=== PATIENT | female | born 1945 | race Hispanic/Latino ===

== ENCOUNTER 2018-07-20 16:36 | Inpatient (IN) | payer MEDICARE, OTHER ==
--- NOTE | 2018-07-20 17:16 | ED PDOC ---
HPI: SOB/CHF/COPD Time Seen by Provider: 07/20/18 16:52 Chief Complaint (Nursing): Shortness Of Breath Chief Complaint (Provider): Shortness of Breath History Per: Patient History/Exam Limitations: no limitations Onset/Duration Of Symptoms: Days (one) Current Symptoms Are (Timing): Still Present (Pt presents to the ED by way of EMS with a complaint of SOB and RIVERO; Pt has no cardiac history, has not smoked for 25 years but does have HTN, hypothyroid, RA; pt denies other symptoms including chest pain and lower extremitiy edema) Initiating Event: Upper Respiratory Illness Exacerbating Factor(s): Laying Flat Severity: Mild Associated Symptoms: denies: Sweating, Chest Pain - Risk Factors PE Risk Factors: Pos: CHF Past Medical History Reviewed: Historical Data, Nursing Documentation, Vital Signs Vital Signs: Last Vital Signs Temp 97.7 F 07/20/18 16:43 Pulse 103 H 07/20/18 16:43 Resp 20 07/20/18 16:43 BP Pulse Ox 90 L 07/20/18 16:43 - Medical History PMH: COPD, Hyperlipidemia, Hypothyroidism - Family History Family History: States: Unknown Family Hx - Home Medications Home Medications: Ambulatory Orders Medication Instructions Recorded Levothyroxine Sodium [Synthroid] 88 mcg PO DAILY 07/20/18 Lisinopril [Prinivil] 20 mg PO DAILY 07/20/18 Methotrexate Sodium [Trexall] 30 mg PO QWK 07/20/18 Naproxen [Naprosyn] 500 mg PO DAILY 07/20/18 - Allergies Allergies/Adverse Reactions: Allergies Allergy/AdvReac Type Severity Reaction Status Date / Time No Known Allergies Allergy Verified 07/20/18 16:43 Curb-65 Severity Score - CURB-65 Severity Score Confusion: No Bun >19mg/dl (>7mmol/L): Yes Respiratory Rate greater than/equal to 30: No Systolic BP <90 or Diastolic BP less than/equal 60mmHg: No Age >64: Yes Curb-65 Score: 2 Percentage 30-day mortality: 6.8% Review of Systems ROS Statement: Except As Marked, All Systems Reviewed And Found Negative Constitutional: Negative for: Fever, Sweats Cardiovascular: Positive for: Orthopnea. Negative for: Chest Pain, Palpitations Respiratory: Positive for: Cough, Shortness of Breath, SOB with Exertion, Wheezing Physical Exam - Reviewed Nursing Documentation Reviewed: Yes Vital Signs Reviewed: Yes - Physical Exam Appears: Positive for: Well, No Acute Distress. Negative for: Uncomfortable Head Exam: Positive for: ATRAUMATIC, NORMAL INSPECTION Skin: Positive for: Normal Color, Warm, Dry. Negative for: Diaphoresis, Pallor, Rash Eye Exam: Positive for: Normal appearance ENT: Positive for: Normal ENT Inspection. Negative for: Nasal Congestion, Pharyngeal Erythema, Tonsillar Exudate, Tonsillar Swelling Neck: Positive for: Normal, Painless ROM, Supple. Negative for: Decreased ROM Cardiovascular/Chest: Positive for: Tachycardia. Negative for: Gallop, Murmur Respiratory: Positive for: Rales (bilateral lower extrmities), Wheezing Pulses-Carotid (L): 2+ Pulses-Carotid (R): 2+ Pulses-Radial (L): 2+ Pulses-Radial (R): 2+ - Laboratory Results Result Diagrams: 07/20/18 17:55 07/20/18 17:55 - ECG O2 Sat by Pulse Oximetry: 90 Medical Decision Making Medical Decision Making: CXR - indicative of infiltrates R>>L and pulmonary edema CMP - elevated BUN (25) CBC - elevated WBC (20) Pt placed on zithromax 500mg and ceftriaxone 1g Admit to Dr Medeiros Consult to Dr Brooks Consult to Dr Azar Pt is stable Disposition - Clinical Impression Clinical Impression: Community acquired pneumonia - Patient ED Disposition Is Patient to be Admitted: Yes Discussed With : Sd Coleman Doctor Will See Patient In The: Hospital Counseled Patient/Family Regarding: Studies Performed, Diagnosis, Need For Followup - Disposition Disposition Time: 22:02 Condition: STABLE Additional Instructions: consult to cardiology (Farideh) and pulmonology (dafne) Forms: [facility] (Thai) - Pt Status Changed To: Hospital Disposition Of: Inpatient - Admit Certification Admit to Inpatient:: After my assessment, the patient will require hospitalization for at least two midnights. This is because of the severity of symptoms shown, intensity of services needed, and/or the medical risk in this patient being treated as an outpatient.
--- NOTE | 2018-07-20 17:59 | RAD ---
Date of service: 07/20/2018 HISTORY: Shortness of breath COMPARISON: 05/17/2013 TECHNIQUE: Chest PA and lateral FINDINGS: LUNGS: Mild pulmonary edema. PLEURA: No significant pleural effusion identified. No pneumothorax apparent. CARDIOVASCULAR: No aortic atherosclerotic calcification present. Normal cardiac size. No pulmonary vascular congestion. OSSEOUS STRUCTURES: No significant abnormalities. VISUALIZED UPPER ABDOMEN: Normal. OTHER FINDINGS: None. IMPRESSION: Mild pulmonary edema etiology uncertain. Normal sized heart.
[2018-07-20 18:01] LABS: BASO # 0.2 K/uL (0.0-0.2); BASO % 1.2 % (0.0-2.0); EOS # 0.1 K/uL (0.0-0.7); EOS % 0.4 % (0.0-4.0); HEMOGLOBIN 12.3 g/dL (12.0-16.0); LYMPH % 25.1 % (20.0-40.0); MEAN CELL VOLUME 95.7 fl (81.0-99.0); MEAN CORPUSCULAR HEMOGLOBIN 30.5 pg (27.0-31.0); MEAN CORPUSCULAR HGB CONC 31.9 g/dL (33.0-37.0); MEAN PLATELET VOLUME 11.5 fl (7.2-11.7); MONO # 2.8 K/uL (0.0-0.8); MONO % 14.3 % (0.0-10.0); NEUT # 11.7 K/uL (1.8-7.0); NRBC % 0.3 % (0.0-0.0); RBC 4.02 Mil/uL (3.80-5.20); RED CELL DISTRIBUTION WIDTH 17.5 % (11.5-14.5); WHITE BLOOD COUNT 19.8 K/uL (4.8-10.8)
[2018-07-20 18:11] LABS: ALB/GLOB RATIO 0.9 (1.0-2.1); ALBUMIN 3.3 g/dL (3.5-5.0); CALCIUM 10.9 mg/dL (8.4-10.2)
[2018-07-20 18:22] LABS: TROPONIN I 0.033 ng/mL (0.00-0.120)
[2018-07-20] MEDS ORDERED: Azithromycin 500 MG in Sodium Chloride 0.9% 250 ML IVPB ONE (19:16)
[2018-07-20] MEDS ORDERED: cefTRIAXone (Rocephin) 250 mg Inj IVPB ONE (19:18)
[2018-07-20] MEDS ORDERED: cefTRIAXone (Rocephin) 1 gm Inj ONE (19:31)
[2018-07-20 19:56] LABS: SQUAMOUS EPITHIAL 1 /hpf (0-5); URINE BILIRUBIN NEGATIVE (NEGATIVE); URINE BLOOD NEGATIVE (NEGATIVE); URINE CLARITY SLIGHTY-CLOUDY (Clear); URINE COLOR YELLOW (YELLOW); URINE GLUCOSE (UA) NEG (NEGATIVE); URINE LEUKOCYTE ESTERASE NEG Leu/uL (Negative); URINE PROTEIN NEGATIVE (NEGATIVE); URINE UROBILINOGEN 0.2-1.0 mg/dL (0.2-1.0)
[2018-07-21 07:32] LABS: BASO # 0.2 K/uL (0.0-0.2); EOS # 0.4 K/uL (0.0-0.7); EOS % 2.2 % (0.0-4.0); HEMOGLOBIN 11.5 g/dL (12.0-16.0); LYMPH # 5.4 K/uL (1.0-4.3); LYMPH % 32.5 % (20.0-40.0); MEAN CELL VOLUME 94.1 fl (81.0-99.0); MEAN CORPUSCULAR HEMOGLOBIN 30.1 pg (27.0-31.0); MEAN PLATELET VOLUME 11.5 fl (7.2-11.7); MONO # 2.8 K/uL (0.0-0.8); MONO % 16.5 % (0.0-10.0); NEUT # 7.9 K/uL (1.8-7.0); NEUT % 47.8 % (50.0-75.0); NRBC % 0.1 % (0.0-0.0); RBC 3.83 Mil/uL (3.80-5.20); RED CELL DISTRIBUTION WIDTH 18.2 % (11.5-14.5); WHITE BLOOD COUNT 16.6 K/uL (4.8-10.8)
[2018-07-21 08:01] LABS: ALB/GLOB RATIO 0.9 (1.0-2.1); ALBUMIN 2.9 g/dL (3.5-5.0); CALCIUM 10.5 mg/dL (8.4-10.2)
[2018-07-21 08:17] LABS: T4 11.6 ug/dl (5.5-11.0)
[2018-07-21 08:31] LABS: T3 0.735 nmol/L (1.49-2.60)
[2018-07-21] MEDS: Levothyroxine 88 MCG TAB PO SCH (09:59)
[2018-07-21] MEDS: Enoxaparin 30 mg Syringe SC SCH (09:59)
[2018-07-21 11:00] LABS: TROPONIN I 0.024 ng/mL (0.00-0.120)
--- NOTE | 2018-07-21 11:54 | CP.PCM.CON ---
History of Present Illness - History of Present Illness History of Present Illness: Seen in the emergency room, seated semi-upright in bed. Presented to the ER yesterday with SOB and cough with scant mucoid sputum expectoration. Denies chest pain or orthopnea. No hemoptysis. Had an episode of feverish sensation associated with shaking chills 2-3 days prior. No GI or complaints. Had been in her usual state of health prior to PI. Chest x-ray shows bilateral lower zone haziness with suggestion of patchy infiltrates on lateral view, but no consolidations or pleural effusions. Leukocytosis of 16 noted on presentation with elevated LFTs and BUN/Creatinine. Patient denies ill contacts. Past Patient History - Past Medical History & Family History Past Medical History?: Yes - Past Social History Smoking Status: Former Smoker Chewing Tobacco Use: No Cigar Use: No Alcohol: None Drugs: Denies Home Situation {Lives}: Alone - CARDIAC Hx Hypertension: Yes - PULMONARY Hx Chronic Obstructive Pulmonary Disease (COPD): Yes - NEUROLOGICAL Hx Neurological Disorder: No - HEENT Hx HEENT Problems: No - RENAL Hx Chronic Kidney Disease: No - ENDOCRINE/METABOLIC Hx Hypothyroidism: Yes - HEMATOLOGICAL/ONCOLOGICAL Hx Blood Disorders: No - INTEGUMENTARY Hx Dermatological Problems: No - MUSCULOSKELETAL/RHEUMATOLOGICAL Hx Osteoarthritis: Yes Hx Rheumatoid Arthritis: Yes - GASTROINTESTINAL Hx Gastrointestinal Disorders: No - GENITOURINARY/GYNECOLOGICAL Hx Genitourinary Disorders: No - PSYCHIATRIC Hx Psychophysiologic Disorder: No Hx Substance Use: No - SURGICAL HISTORY Hx Surgeries: No Meds Allergies/Adverse Reactions: Allergies Allergy/AdvReac Type Severity Reaction Status Date / Time No Known Allergies Allergy Verified 07/20/18 16:43 - Medications Medications: Current Medications Enoxaparin Sodium (Lovenox) 30 mg SC DAILY [facility]; Protocol Last Admin: 07/21/18 09:59 Dose: 30 mg Dextrose/Sodium Chloride (Dextrose 5%-0.45% Ns 500 Ml) 500 mls @ 20 mls/hr IV .Q24H [facility]D Stop: 07/22/18 00:29 Last Admin: 07/21/18 01:24 Dose: 20 mls/hr Azithromycin 500 mg/ Sodium (Chloride) 250 mls @ 250 mls/hr IVPB DAILY [facility]; Protocol Ceftriaxone Sodium 1 gm/ (Sodium Chloride) 100 mls @ 100 mls/hr IVPB DAILY [facility]; Protocol Levothyroxine Sodium (Synthroid) 88 mcg PO DAILY@0630 [facility] Last Admin: 07/21/18 09:59 Dose: 88 mcg Lisinopril (Zestril) 20 mg PO DAILY [facility] Last Admin: 07/21/18 09:59 Dose: 20 mg Physical Exam - Additional Findings Additional findings: Lying on the stretcher, semi-upright, appears comfortable. Well developed, overweight female in no acute distress. Trace dependant edema of the ankles bilaterally. No cyanosis, no calf tenderness. No palpable lymphadenopathy, no rashes, no ecchymoses, no jaundice. Pharynx is pink and moist w/o exudate. Nares are patent bilaterally w/o bleeding or exudate. Neck is supple and trachea midline, no visible JVD, no carotid bruit. No dullness on chest percussion, equal expansion. Breath sounds are mildly diminished bilaterally. Scattered dry rales in lower lobes. No audible wheezes or bronchial breath sounds. Heart sounds are well heard, regular, no murmur heard. Abdomen is soft with normal bowel sounds, +ventral hernia. Results - Vital Signs Recent Vital Signs: Last Vital Signs Temp 97.7 F 07/21/18 06:33 Pulse 76 07/21/18 10:02 Resp 22 07/21/18 10:02 BP 115/64 07/21/18 10:02 Pulse Ox 93 L 07/21/18 10:02 - Labs Result Diagrams: 07/21/18 06:45 07/21/18 06:45 Labs: Laboratory Results - last 24 hr 07/20/18 07/20/18 07/20/18 17:55 17:55 19:38 WBC 19.8 H D RBC 4.02 Hgb 12.3 Hct 38.5 MCV 95.7 MCH 30.5 MCHC 31.9 L RDW 17.5 H Plt Count 234 D MPV 11.5 Neut % (Auto) 59.0 Lymph % (Auto) 25.1 [place] % (Auto) 14.3 H Eos % (Auto) 0.4 Baso % (Auto) 1.2 Neut # (Auto) 11.7 H Lymph # (Auto) 5.0 H [place] # (Auto) 2.8 H Eos # (Auto) 0.1 Baso # (Auto) 0.2 Sodium 135 Potassium 4.3 Chloride 99 Carbon Dioxide 26 Anion Gap 14 BUN 29 H Creatinine 1.3 H Est GFR ( Amer) 49 Est GFR (Non-Af Amer) 40 Random Glucose 113 H Calcium 10.9 H Phosphorus Magnesium Total Bilirubin 1.2 AST 64 H D ALT 55 H D Alkaline Phosphatase 130 H D Troponin I 0.0330 NT-Pro-B Natriuret Pep 6240 H Total Protein 6.8 Albumin 3.3 L Globulin 3.5 Albumin/Globulin Ratio 0.9 L Triglycerides Cholesterol LDL Cholesterol Direct HDL Cholesterol Thyroxine (T4) Total T3 TSH 3rd Generation Urine Color Yellow Urine Clarity Slighty-cloudy Urine pH 6.0 Ur Specific [place] 1.008 Urine Protein Negative Urine Glucose (UA) Neg Urine Ketones Negative Urine Blood Negative Urine Nitrate Negative Urine Bilirubin Negative Urine Urobilinogen 0.2-1.0 Ur Leukocyte Esterase Neg Urine RBC (Auto) 1 Urine Microscopic WBC < 1 Ur Squamous Epith Cells 1 Hyaline Casts 3-5 H 07/21/18 07/21/18 07/21/18 01:24 06:45 06:45 WBC 16.6 H RBC 3.83 Hgb 11.5 L Hct 36.0 MCV 94.1 MCH 30.1 MCHC 32.0 L RDW 18.2 H Plt Count 209 MPV 11.5 Neut % (Auto) 47.8 L Lymph % (Auto) 32.5 [place] % (Auto) 16.5 H Eos % (Auto) 2.2 Baso % (Auto) 1.0 Neut # (Auto) 7.9 H Lymph # (Auto) 5.4 H [place] # (Auto) 2.8 H Eos # (Auto) 0.4 Baso # (Auto) 0.2 Sodium 140 Potassium 4.0 Chloride 102 Carbon Dioxide 29 Anion Gap 13 BUN 29 H Creatinine 1.4 H Est GFR ( Amer) 45 Est GFR (Non-Af Amer) 37 Random Glucose 90 Calcium 10.5 H Phosphorus Magnesium Total Bilirubin 0.7 AST 56 H ALT 53 H Alkaline Phosphatase 112 Troponin I 0.0290 NT-Pro-B Natriuret Pep Total Protein 6.3 Albumin 2.9 L Globulin 3.4 Albumin/Globulin Ratio 0.9 L Triglycerides 116 D Cholesterol 133 LDL Cholesterol Direct 101 HDL Cholesterol 20 L Thyroxine (T4) 11.6 H Total T3 0.735 L TSH 3rd Generation 1.35 Urine Color Urine Clarity Urine pH Ur Specific [place] Urine Protein Urine Glucose (UA) Urine Ketones Urine Blood Urine Nitrate Urine Bilirubin Urine Urobilinogen Ur Leukocyte Esterase Urine RBC (Auto) Urine Microscopic WBC Ur Squamous Epith Cells Hyaline Casts 07/21/18 10:05 WBC RBC Hgb Hct MCV MCH MCHC RDW Plt Count MPV Neut % (Auto) Lymph % (Auto) [place] % (Auto) Eos % (Auto) Baso % (Auto) Neut # (Auto) Lymph # (Auto) [place] # (Auto) Eos # (Auto) Baso # (Auto) Sodium Potassium Chloride Carbon Dioxide Anion Gap BUN Creatinine Est GFR ( Amer) Est GFR (Non-Af Amer) Random Glucose Calcium Phosphorus 5.7 H Magnesium 1.9 Total Bilirubin AST ALT Alkaline Phosphatase Troponin I 0.0240 NT-Pro-B Natriuret Pep Total Protein Albumin Globulin Albumin/Globulin Ratio Triglycerides Cholesterol LDL Cholesterol Direct HDL Cholesterol Thyroxine (T4) Total T3 TSH 3rd Generation Urine Color Urine Clarity Urine pH Ur Specific [place] Urine Protein Urine Glucose (UA) Urine Ketones Urine Blood Urine Nitrate Urine Bilirubin Urine Urobilinogen Ur Leukocyte Esterase Urine RBC (Auto) Urine Microscopic WBC Ur Squamous Epith Cells Hyaline Casts Assessment & Plan (1) Atypical pneumonia Status: Acute Priority: High (2) Rheumatoid arthritis Status: Chronic Priority: High (3) MARLON (acute kidney injury) Status: Acute Priority: High (4) Transaminitis Status: Acute Priority: High - Assessment and Plan (Free Text) Plan: Would continue antibiotic coverage for atypical CAP. CT chest w/o contrast. Continue cardiac evaluation. Lab work requested. DVT prophylaxis. PFT as outpatient. VQ lung scan if elevated RV pressure. - Date & Time Date: 07/21/18 Time: 12:59
[2018-07-21] MEDS ORDERED: Azithromycin 500 MG IV IVPB ONE (12:03)
[2018-07-21] MEDS: Azithromycin 500 MG in Sodium Chloride 0.9% 250 ML IVPB SCH (12:03)
[2018-07-21] MEDS ORDERED: cefTRIAXone (Rocephin) 1 gm Inj ONE (13:35)
--- NOTE | 2018-07-21 14:31 | CT ---
Date of service: 07/21/2018 PROCEDURE: CT Chest without contrast HISTORY: SOB COMPARISON: None available. TECHNIQUE: Contiguous axial images were obtained through the chest without intravenous contrast enhancement. Sagittal and coronal reconstructions were performed. Radiation dose: Total exam DLP = 557.41 mGy-cm. This CT exam was performed using one or more of the following dose reduction techniques: Automated exposure control, adjustment of the mA and/or kV according to patient size, and/or use of iterative reconstruction technique. FINDINGS: LUNGS: Diffuse bilateral mixed interstitial and ground-glass density infiltrates. Minimal subpleural consolidation at the left base. MEDIASTINUM: Unremarkable thoracic aorta. No aneurysm. Normal sized heart. Main pulmonary artery unremarkable. No vascular congestion. No lymphadenopathy. No aortic atherosclerotic calcification. PLEURA: No pleural fluid. No pneumothorax. BONES: No fracture. No destructive lesion. UPPER ABDOMEN: Grossly unremarkable. OTHER FINDINGS: Bilateral thyroid nodularity. IMPRESSION: Diffuse bilateral mixed interstitial and ground-glass density infiltrates. Minimal subpleural consolidation at the left base.
--- NOTE | 2018-07-21 14:59 | CP.PCM.CON ---
History of Present Illness - History of Present Illness History of Present Illness: THE PATIENT IS A 73 YEAR OLD FEMALE WITH A HISTORY OF HYPERTENSION, RA, HYPOTHYROIDISM AND SHE IS A FORMER SMOKER. SHE STATES THAT BEFORE [place] SHE GOT A COLD AND HAD SOB AND CHILLS. SHE TREATED IT ON HER OWN WITH OTC MEDICATIONS AND THE SOB CONTINUED TO GET WORSE AND SHE CAME TO THE ER AND SHE WAS TREATED WITH IV ANTIBIOTICS FOR PNEUMONIA AND ALSO BELIEVED TO BE IN CHF AND WAS GIVEN LASIX AND WAS ADMITTED. I WAS CALLED TO SEE HER FOR POSSIBLE CHF. SHE DENIES CHEST PAIN OR A CAD HISTORY. Past Patient History - Past Medical History & Family History Past Medical History?: Yes - Past Social History Smoking Status: Former Smoker Chewing Tobacco Use: No Cigar Use: No Alcohol: None Drugs: Denies Home Situation {Lives}: Alone - CARDIAC Hx Hypertension: Yes - PULMONARY Hx Chronic Obstructive Pulmonary Disease (COPD): Yes - NEUROLOGICAL Hx Neurological Disorder: No - HEENT Hx HEENT Problems: No - RENAL Hx Chronic Kidney Disease: No - ENDOCRINE/METABOLIC Hx Hypothyroidism: Yes - HEMATOLOGICAL/ONCOLOGICAL Hx Blood Disorders: No - INTEGUMENTARY Hx Dermatological Problems: No - MUSCULOSKELETAL/RHEUMATOLOGICAL Hx Osteoarthritis: Yes Hx Rheumatoid Arthritis: Yes - GASTROINTESTINAL Hx Gastrointestinal Disorders: No - GENITOURINARY/GYNECOLOGICAL Hx Genitourinary Disorders: No - PSYCHIATRIC Hx Psychophysiologic Disorder: No Hx Substance Use: No - SURGICAL HISTORY Hx Surgeries: No Meds Allergies/Adverse Reactions: Allergies Allergy/AdvReac Type Severity Reaction Status Date / Time No Known Allergies Allergy Verified 07/20/18 16:43 - Medications Medications: Current Medications Enoxaparin Sodium (Lovenox) 30 mg SC DAILY [facility]; Protocol Last Admin: 07/21/18 09:59 Dose: 30 mg Dextrose/Sodium Chloride (Dextrose 5%-0.45% Ns 500 Ml) 500 mls @ 20 mls/hr IV .Q24H [facility] Stop: 07/22/18 00:29 Last Admin: 07/21/18 01:24 Dose: 20 mls/hr Azithromycin 500 mg/ Sodium (Chloride) 250 mls @ 250 mls/hr IVPB DAILY [facility]; Protocol Last Admin: 07/21/18 12:03 Dose: 250 mls/hr Ceftriaxone Sodium 1 gm/ (Sodium Chloride) 100 mls @ 100 mls/hr IVPB DAILY [facility]; Protocol Last Admin: 07/21/18 13:47 Dose: 100 mls/hr Levothyroxine Sodium (Synthroid) 88 mcg PO DAILY@0630 [facility] Last Admin: 07/21/18 09:59 Dose: 88 mcg Lisinopril (Zestril) 20 mg PO DAILY [facility] Last Admin: 07/21/18 09:59 Dose: 20 mg Physical Exam - Respiratory Exam Additional comments: BILATERAL LOWER LOBE RALES - Cardiovascular Exam Cardiovascular Exam: REGULAR RHYTHM, +S1, +S2 - Extremities Exam Additional comments: NO SIGNIFICANT LE EDEMA - Additional Findings Additional findings: EKG NSR, LAD, NSSTT CHANGES TROPONIN NEGATIVE X 3 WBC 19.8 PBNP ELEVATED CXR HAZZINESS AND POSSIBLE INFILTRATES CT OF CHEST WITH DIFFUSE BILAT MIXED INTERSTITIAL AND GROUND GLASS DENSITY INFILTRATES ECHO NORMAL LV SYSTOLIC FUNCTION, GRADE I DIASTOLIC DYSFUNCTION, NO SIGNIFICANT VALVULAR PROBLEMS, PA PRESSURES CAN'T BE MEASURED THERE ISN'T ANY TR Results - Vital Signs Recent Vital Signs: Last Vital Signs Temp 98.3 F 07/21/18 14:19 Pulse 84 07/21/18 14:19 Resp 25 H 07/21/18 14:19 BP 122/65 07/21/18 14:19 Pulse Ox 90 L 07/21/18 14:19 - Labs Result Diagrams: 07/21/18 06:45 07/21/18 06:45 Labs: Laboratory Results - last 24 hr 07/20/18 07/20/18 07/20/18 17:55 17:55 19:38 WBC 19.8 H D RBC 4.02 Hgb 12.3 Hct 38.5 MCV 95.7 MCH 30.5 MCHC 31.9 L RDW 17.5 H Plt Count 234 D MPV 11.5 Neut % (Auto) 59.0 Lymph % (Auto) 25.1 [place] % (Auto) 14.3 H Eos % (Auto) 0.4 Baso % (Auto) 1.2 Neut # (Auto) 11.7 H Lymph # (Auto) 5.0 H [place] # (Auto) 2.8 H Eos # (Auto) 0.1 Baso # (Auto) 0.2 Sodium 135 Potassium 4.3 Chloride 99 Carbon Dioxide 26 Anion Gap 14 BUN 29 H Creatinine 1.3 H Est GFR ( Amer) 49 Est GFR (Non-Af Amer) 40 Random Glucose 113 H Calcium 10.9 H Phosphorus Magnesium Total Bilirubin 1.2 AST 64 H D ALT 55 H D Alkaline Phosphatase 130 H D Troponin I 0.0330 NT-Pro-B Natriuret Pep 6240 H Total Protein 6.8 Albumin 3.3 L Globulin 3.5 Albumin/Globulin Ratio 0.9 L Triglycerides Cholesterol LDL Cholesterol Direct HDL Cholesterol Thyroxine (T4) Total T3 TSH 3rd Generation Urine Color Yellow Urine Clarity Slighty-cloudy Urine pH 6.0 Ur Specific [place] 1.008 Urine Protein Negative Urine Glucose (UA) Neg Urine Ketones Negative Urine Blood Negative Urine Nitrate Negative Urine Bilirubin Negative Urine Urobilinogen 0.2-1.0 Ur Leukocyte Esterase Neg Urine RBC (Auto) 1 Urine Microscopic WBC < 1 Ur Squamous Epith Cells 1 Hyaline Casts 3-5 H 07/21/18 07/21/18 07/21/18 01:24 06:45 06:45 WBC 16.6 H RBC 3.83 Hgb 11.5 L Hct 36.0 MCV 94.1 MCH 30.1 MCHC 32.0 L RDW 18.2 H Plt Count 209 MPV 11.5 Neut % (Auto) 47.8 L Lymph % (Auto) 32.5 [place] % (Auto) 16.5 H Eos % (Auto) 2.2 Baso % (Auto) 1.0 Neut # (Auto) 7.9 H Lymph # (Auto) 5.4 H [place] # (Auto) 2.8 H Eos # (Auto) 0.4 Baso # (Auto) 0.2 Sodium 140 Potassium 4.0 Chloride 102 Carbon Dioxide 29 Anion Gap 13 BUN 29 H Creatinine 1.4 H Est GFR ( Amer) 45 Est GFR (Non-Af Amer) 37 Random Glucose 90 Calcium 10.5 H Phosphorus Magnesium Total Bilirubin 0.7 AST 56 H ALT 53 H Alkaline Phosphatase 112 Troponin I 0.0290 NT-Pro-B Natriuret Pep Total Protein 6.3 Albumin 2.9 L Globulin 3.4 Albumin/Globulin Ratio 0.9 L Triglycerides 116 D Cholesterol 133 LDL Cholesterol Direct 101 HDL Cholesterol 20 L Thyroxine (T4) 11.6 H Total T3 0.735 L TSH 3rd Generation 1.35 Urine Color Urine Clarity Urine pH Ur Specific [place] Urine Protein Urine Glucose (UA) Urine Ketones Urine Blood Urine Nitrate Urine Bilirubin Urine Urobilinogen Ur Leukocyte Esterase Urine RBC (Auto) Urine Microscopic WBC Ur Squamous Epith Cells Hyaline Casts 07/21/18 10:05 WBC RBC Hgb Hct MCV MCH MCHC RDW Plt Count MPV Neut % (Auto) Lymph % (Auto) [place] % (Auto) Eos % (Auto) Baso % (Auto) Neut # (Auto) Lymph # (Auto) [place] # (Auto) Eos # (Auto) Baso # (Auto) Sodium Potassium Chloride Carbon Dioxide Anion Gap BUN Creatinine Est GFR ( Amer) Est GFR (Non-Af Amer) Random Glucose Calcium Phosphorus 5.7 H Magnesium 1.9 Total Bilirubin AST ALT Alkaline Phosphatase Troponin I 0.0240 NT-Pro-B Natriuret Pep Total Protein Albumin Globulin Albumin/Globulin Ratio Triglycerides Cholesterol LDL Cholesterol Direct HDL Cholesterol Thyroxine (T4) Total T3 TSH 3rd Generation Urine Color Urine Clarity Urine pH Ur Specific [place] Urine Protein Urine Glucose (UA) Urine Ketones Urine Blood Urine Nitrate Urine Bilirubin Urine Urobilinogen Ur Leukocyte Esterase Urine RBC (Auto) Urine Microscopic WBC Ur Squamous Epith Cells Hyaline Casts Assessment & Plan - Assessment and Plan (Free Text) Assessment: PROBABLE PNEUMONIA CLINICALLY DOUBT CLINICAL CHF BY HISTORY BEING MORE OF AN INFECTIOUS PROCESS AND CT FINDINGS MORE OF RA LUNG CHANGES AND PROBALE PNEUMONIA. PBNP CAN BE ELEVATED BY LUNG DISEASE. GOOD LV FUNCTION ON ECHOCARDIOGRAM. RA HYPERTENSION HYPOTHYROIDISM Plan: CONTINUE O2, IV ANTIBIOTICS, LISINOPRIL, LEVOTHYROXINE AND LOVENOX THE PATIENT RECEIVED 40 MGS OF FUROSEMIDE IN THE THE ER AND I WOULD HOLD OFF ON FURTHER FUROSEMIDE I THINK THE LUNG CHANGES ON IMAGING AND THE CLINICAL PICTURE IS OF RHEUMATOID LUNG CHANGES AND PNEUMONIA
--- NOTE | 2018-07-21 23:01 | CARD ---
APPROVED REPORT Date of service: 07/20/2018 EKG Measurement Heart [id number] <Conclusion> Normal sinus rhythm Left axis deviation Nonspecific T wave abnormality Prolonged QT Abnormal ECG
--- NOTE | 2018-07-21 23:10 | CARD ---
APPROVED REPORT Date of service: 07/21/2018 EKG Measurement Heart [id number] <Conclusion> Normal sinus rhythm Nonspecific T wave abnormality Abnormal ECG
--- NOTE | 2018-07-21 23:16 | CARD ---
APPROVED REPORT Date of service: 07/21/2018 EXAM: Two-dimensional and M-mode echocardiogram with Doppler and color Doppler. Other Information Quality : GoodRhythm : NSR INDICATION Congestive Heart Failure 2D DIMENSIONS IVSd0.93 (0.7-1.1cm)LVDd3.49 (3.9-5.9cm) LVOT Diameter1.94 (1.8-2.4cm)PWd1.10 (0.7-1.1cm) IVSs1.35 (0.8-1.2cm)LVDs2.15 (2.5-4.0cm) FS (%) 38.6 %PWs1.47 (0.8-1.2cm) M-Mode DIMENSIONS Left Atrium (MM)2.98 (2.5-4.0cm)IVSd1.46 (0.7-1.1cm) Aortic Root2.94 (2.2-3.7cm)LVDd3.38 (4.0-5.6cm) Aortic Cusp Exc.1.75 (1.5-2.0cm)PWd1.16 (0.7-1.1cm) IVSs1.62 cmFS (%) 33 % LVDs2.25 (2.0-3.8cm)PWs1.39 cm Aortic Valve AoV Peak Gmywucxv683.0cm/sAoV VTI27.6cmAO Peak GR.12mmHg LVOT Peak Ppmqfjuj173.8cm/sLVOT VTI19.05cmAO Mean GR.6mmHg ANSHU (VMAX)0.83kb1DGN (VTI)1.09cm2 Mitral Valve MV E Obgifxkb11.0cm/sMV DECEL PWVE094crAX A Oajtgfrm03.9cm/s MV LYN71lyV/A ratio0.7MVA (PHT)2.79cm2 TDI Lateral E' Peak V7.82cm/sMedial E' Peak V4.73cm/sE/Lateral E'7.9 E/Medial E'13.1 Tricuspid Valve TR Peak Exdeuzbt163lk/sRAP WMJZCZKN77yiYmCY Peak Gr.10mmHg EBYN37mrIf LEFT VENTRICLE The left ventricle is normal size. There is normal left ventricular wall thickness. The left ventricular systolic function is normal. The estimated ejection fraction is 55-60% No regional wall motion abnormalities noted.. Transmitral Doppler flow pattern is Grade I-abnormal relaxation pattern. No left ventricle thrombus noted on this study. There is no ventricular septal defect visualized. There is no left ventricular aneurysm. There is no mass noted in the left ventricle. RIGHT VENTRICLE The right ventricle is normal size. There is normal right ventricular wall thickness. The right ventricular systolic function is normal. ATRIA The left atrium size is normal. The right atrium size is normal. The interatrial septum is intact with no evidence for an atrial septal defect. AORTIC VALVE The aortic valve is normal in structure. No aortic regurgitation is present. There is no aortic valvular stenosis. There is no aortic valvular vegetation. MITRAL VALVE The mitral valve is normal in structure. There is no evidence of mitral valve prolapse. There is no mitral valve stenosis. There is no mitral valve regurgitation noted. TRICUSPID VALVE The tricuspid valve is normal in structure. There is trace tricuspid valve regurgitation noted. RVSP is calculated as < 20 mm Hg. There is no tricuspid valve prolapse or vegetation. There is no tricuspid valve stenosis. PULMONIC VALVE The pulmonary valve is normal in structure. There is no pulmonic valvular regurgitation. There is no pulmonic valvular stenosis. GREAT VESSELS The aortic root is normal in size. The ascending aorta is normal in size. The pulmonary artery is normal. The IVC is normal in size and collapses >50% with inspiration. PERICARDIAL EFFUSION There is no pericardial effusion. There is no pleural effusion. <Conclusion> The estimated ejection fraction is 55-60% Transmitral Doppler flow pattern is Grade I-abnormal relaxation pattern. The left atrium size is normal. There is trace tricuspid valve regurgitation noted. RVSP is calculated as < 20 mm Hg. The IVC is normal in size and collapses >50% with inspiration.
--- NOTE | 2018-07-21 23:34 | CP.PCM.HP ---
History of Present Illness - History of Present Illness History of Present Illness: 73 yo with hx of smoking obesity HTN ITP and rheumatoid arthritis admitted fro cough and SOB Present on Admission - Present on Admission Any Indicators Present on Admission: No Past Patient History - Past Medical History & Family History Past Medical History?: Yes - Past Social History Smoking Status: Former Smoker Chewing Tobacco Use: No Cigar Use: No Alcohol: None Drugs: Denies Home Situation {Lives}: Alone - CARDIAC Hx Hypertension: Yes - PULMONARY Hx Respiratory Disorders: Yes - NEUROLOGICAL Hx Neurological Disorder: No - HEENT Hx HEENT Problems: No - RENAL Hx Chronic Kidney Disease: No - ENDOCRINE/METABOLIC Hx Hypothyroidism: Yes - HEMATOLOGICAL/ONCOLOGICAL Hx Blood Disorders: No - INTEGUMENTARY Hx Dermatological Problems: No - MUSCULOSKELETAL/RHEUMATOLOGICAL Hx Osteoarthritis: Yes Hx Rheumatoid Arthritis: Yes - GASTROINTESTINAL Hx Gastrointestinal Disorders: No - GENITOURINARY/GYNECOLOGICAL Hx Genitourinary Disorders: No - PSYCHIATRIC Hx Psychophysiologic Disorder: No - SURGICAL HISTORY Hx Surgeries: No Meds Allergies/Adverse Reactions: Allergies Allergy/AdvReac Type Severity Reaction Status Date / Time No Known Allergies Allergy Verified 07/20/18 16:43 Physical Exam - Respiratory Exam Respiratory Exam: NORMAL BREATHING PATTERN - Cardiovascular Exam Cardiovascular Exam: REGULAR RHYTHM - GI/Abdominal Exam GI & Abdominal Exam: Normal Bowel Sounds Results - Vital Signs Recent Vital Signs: Last Vital Signs Temp 98.9 F 07/21/18 19:52 Pulse 90 07/21/18 19:52 Resp 16 07/21/18 19:52 BP 106/64 07/21/18 19:52 Pulse Ox 95 07/21/18 19:52 - Labs Result Diagrams: 07/21/18 06:45 07/21/18 06:45 Labs: Laboratory Results - last 24 hr 07/21/18 07/21/18 07/21/18 01:24 06:45 06:45 WBC 16.6 H RBC 3.83 Hgb 11.5 L Hct 36.0 MCV 94.1 MCH 30.1 MCHC 32.0 L RDW 18.2 H Plt Count 209 MPV 11.5 Neut % (Auto) 47.8 L Lymph % (Auto) 32.5 Atlantic % (Auto) 16.5 H Eos % (Auto) 2.2 Baso % (Auto) 1.0 Neut # (Auto) 7.9 H Lymph # (Auto) 5.4 H Atlantic # (Auto) 2.8 H Eos # (Auto) 0.4 Baso # (Auto) 0.2 Sodium 140 Potassium 4.0 Chloride 102 Carbon Dioxide 29 Anion Gap 13 BUN 29 H Creatinine 1.4 H Est GFR ( Amer) 45 Est GFR (Non-Af Amer) 37 Random Glucose 90 Calcium 10.5 H Phosphorus Magnesium Total Bilirubin 0.7 AST 56 H ALT 53 H Alkaline Phosphatase 112 Troponin I 0.0290 Total Protein 6.3 Albumin 2.9 L Globulin 3.4 Albumin/Globulin Ratio 0.9 L Triglycerides 116 D Cholesterol 133 LDL Cholesterol Direct 101 HDL Cholesterol 20 L Thyroxine (T4) 11.6 H Total T3 0.735 L TSH 3rd Generation 1.35 Mycoplasma pneumon IgM 07/21/18 07/21/18 07/21/18 10:05 13:57 17:00 WBC RBC Hgb Hct MCV MCH MCHC RDW Plt Count MPV Neut % (Auto) Lymph % (Auto) Atlantic % (Auto) Eos % (Auto) Baso % (Auto) Neut # (Auto) Lymph # (Auto) Atlantic # (Auto) Eos # (Auto) Baso # (Auto) Sodium Potassium Chloride Carbon Dioxide Anion Gap BUN Creatinine Est GFR ( Amer) Est GFR (Non-Af Amer) Random Glucose Calcium Phosphorus 5.7 H Magnesium 1.9 Total Bilirubin AST ALT Alkaline Phosphatase Troponin I 0.0240 0.0170 Total Protein Albumin Globulin Albumin/Globulin Ratio Triglycerides Cholesterol LDL Cholesterol Direct HDL Cholesterol Thyroxine (T4) Total T3 TSH 3rd Generation Mycoplasma pneumon IgM Negative Assessment & Plan - Assessment and Plan (Free Text) Assessment: SOB COPD CAP vs CHF Pulmonary Cardiology MARLON Dehydration Rheumatoid arthritis Obesity HTN ITP thrombocytopenia - Date & Time Date: 07/21/18 Time: 22:22
[2018-07-22] MEDS: Levothyroxine 88 MCG TAB PO SCH (06:27)
[2018-07-22] MEDS: Enoxaparin 30 mg Syringe SC SCH (09:41)
[2018-07-22] MEDS: Azithromycin 500 MG in Sodium Chloride 0.9% 250 ML IVPB SCH (09:42)
--- NOTE | 2018-07-22 13:07 | CP.PCM.PN ---
Subjective - Date & Time of Evaluation Date of Evaluation: 07/22/18 Time of Evaluation: 10:00 - Subjective Subjective: NO CHEST PAIN BREATHING BETTER TODAY Objective - Vital Signs/Intake and Output Vital Signs (last 24 hours): Temp Pulse Resp BP Pulse Ox 97.8 F 81 20 111/75 94 L 07/22/18 11:57 07/22/18 11:57 07/22/18 11:57 07/22/18 11:57 07/22/18 11:57 - Medications Medications: Current Medications Enoxaparin Sodium (Lovenox) 30 mg SC DAILY [facility]; Protocol Last Admin: 07/22/18 09:41 Dose: 30 mg Azithromycin 500 mg/ Sodium (Chloride) 250 mls @ 250 mls/hr IVPB DAILY [facility]; Protocol Last Admin: 07/22/18 09:42 Dose: 250 mls/hr Ceftriaxone Sodium 1 gm/ (Sodium Chloride) 100 mls @ 100 mls/hr IVPB DAILY [facility]; Protocol Last Admin: 07/22/18 09:42 Dose: 100 mls/hr Levothyroxine Sodium (Synthroid) 88 mcg PO DAILY@0630 [facility] Last Admin: 07/22/18 06:27 Dose: 88 mcg Lisinopril (Zestril) 20 mg PO DAILY [facility] Last Admin: 07/22/18 09:43 Dose: 20 mg - Labs Labs: 07/21/18 06:45 07/21/18 06:45 - Respiratory Exam Respiratory Exam: Rales - Cardiovascular Exam Cardiovascular Exam: REGULAR RHYTHM, +S1, +S2 - Extremities Exam Additional comments: NO SIGNIFICANT LE EDEMA - Additional Findings Additional findings: LEAD ATHLETE SHOWS NSR Assessment and Plan - Assessment and Plan (Free Text) Assessment: PNEUMONIA RA HYPERTENSION Plan: CONTINUE ANTIBIOTICS, LOVENOX AND LISINOPRIL
--- NOTE | 2018-07-22 14:30 | CP.PCM.PN ---
Subjective - Date & Time of Evaluation Date of Evaluation: 07/22/18 Time of Evaluation: 22:22 - Subjective Subjective: Improved Objective - Vital Signs/Intake and Output Vital Signs (last 24 hours): Temp Pulse Resp BP Pulse Ox 97.8 F 81 20 111/75 94 L 07/22/18 11:57 07/22/18 11:57 07/22/18 11:57 07/22/18 11:57 07/22/18 11:57 - Medications Medications: Current Medications Enoxaparin Sodium (Lovenox) 30 mg SC DAILY [facility]; Protocol Last Admin: 07/22/18 09:41 Dose: 30 mg Azithromycin 500 mg/ Sodium (Chloride) 250 mls @ 250 mls/hr IVPB DAILY [facility]; Protocol Last Admin: 07/22/18 09:42 Dose: 250 mls/hr Ceftriaxone Sodium 1 gm/ (Sodium Chloride) 100 mls @ 100 mls/hr IVPB DAILY [facility]; Protocol Last Admin: 07/22/18 09:42 Dose: 100 mls/hr Levothyroxine Sodium (Synthroid) 88 mcg PO DAILY@0630 [facility] Last Admin: 07/22/18 06:27 Dose: 88 mcg Lisinopril (Zestril) 20 mg PO DAILY [facility] Last Admin: 07/22/18 09:43 Dose: 20 mg - Labs Labs: 07/21/18 06:45 07/21/18 06:45 - Respiratory Exam Respiratory Exam: NORMAL BREATHING PATTERN - Cardiovascular Exam Cardiovascular Exam: REGULAR RHYTHM - GI/Abdominal Exam GI & Abdominal Exam: Normal Bowel Sounds Assessment and Plan - Assessment and Plan (Free Text) Assessment: SOB COPD CAP vs CHF CT scan diffuse interstitial dx Pulmonary Echo 55-60 Cardiology MARLON Dehydration Rheumatoid arthritis Obesity HTN ITP thrombocytopenia TFT ?? Hypercalcemia Labs Endo
[2018-07-22 16:20] LABS: HEMOGLOBIN 10.9 g/dL (12.0-16.0); MEAN CELL VOLUME 96.7 fl (81.0-99.0); MEAN CORPUSCULAR HEMOGLOBIN 30.2 pg (27.0-31.0); MEAN CORPUSCULAR HGB CONC 31.3 g/dL (33.0-37.0); RBC 3.61 Mil/uL (3.80-5.20); RED CELL DISTRIBUTION WIDTH 18.2 % (11.5-14.5); WHITE BLOOD COUNT 13.2 K/uL (4.8-10.8)
[2018-07-22 16:46] LABS: T4 11.6 ug/dl (5.5-11.0)
[2018-07-22 17:06] LABS: ALB/GLOB RATIO 0.8 (1.0-2.1); ALBUMIN 2.8 g/dL (3.5-5.0); CALCIUM 9.9 mg/dL (8.4-10.2)
--- NOTE | 2018-07-23 04:45 | CON ---
DATE: 07/22/2018 LOCATION: Room 417. SUBJECTIVE: This is a 73-year-old female with known history of hypertension and hypothyroidism, presenting here with progressively worsening shortness of breath and evaluated to be in congestive heart failure with concomitant pneumonitis and is now being referred for evaluation of abnormal thyroid function studies and calcium levels as noted. PAST MEDICAL HISTORY: History of hypothyroidism; currently on levothyroxine; taken 88 mcg daily, history of rheumatoid arthritis; on methotrexate therapy as noted, history of hypertension and dyslipidemia, history of chronic obstructive lung disease. FAMILY HISTORY: Positive for hypertension and heart disease. SOCIAL HISTORY: The patient quit smoking over 25 years ago, has a supportive family otherwise. REVIEW OF SYSTEMS: As mentioned above. Admits to generalized body weakness with episodic bouts of dizziness and lightheadedness, worse in the last few days prior to admission. No chest pains, but admits to progressive shortness of breath, initially on exertion and then at rest with paroxysmal nocturnal dyspnea. Her oral intake has been variable with occasional dyspepsia and also has habitual constipation. PHYSICAL EXAMINATION: GENERAL: This is an overweight female, in no apparent distress. VITAL SIGNS: Blood pressure of 140/80, pulse of 100 beats per minute and regular, temperature 100, and respirations 20. Height is 5 feet, weight is 200 pounds. HEENT: Head normocephalic. Eyes anicteric with pink conjunctivae. Funduscopy not possible at this time. Ears, nose, and throat otherwise normal. NECK: Supple. Thyroid gland is firm and nontender with no overactive thyroid bruits or thyroid nodules palpable at this time. No carotid bruits or any cervical adenopathy. HEART: Adynamic precordium. S1, S2 is rapid and regular. LUNGS: Shows scattered rhonchi and bibasilar rales. ABDOMEN: Obese and soft with positive bowel sounds. EXTREMITIES: No peripheral edema. Pulses are +2 bilaterally. LABORATORY DATA: WBC initially was 19.8, hemoglobin of 12, hematocrit of 38, MCV 95, and platelets 234. Chemistries; BUN of 25, sodium 139, potassium 3.9, chloride 104, CO2 26, glucose 128, and creatinine 1.4. Her thyroxine level is 11.6 with a TSH of 0.42. She has slightly elevated liver transaminases. The proBNP was 6240. ASSESSMENT: This is a 73-year-old female presenting here with congestive heart failure, concomitant pneumonitis, currently receiving intravenous antibiotic management, and being followed closely by Cardiology and exhibit specialist as noted. She remains clinically euthyroid, but biochemically has evidence of early subclinical hyperthyroxinemia as noted. She also most likely has underlying autoimmune thyroiditis as noted historically. Moreover, there slightly elevated calcium levels have been noted and we also to exclude any underlying primary hyperparathyroidism, quite common in women postmenopausal as noted. PLAN OF MANAGEMENT: Concur with the parathyroid hormone intact level as given and ordered and we will obtain also a magnesium and phosphorus level as ordered. We will repeat the thyroid studies and in the meantime lower the levothyroxine to 75 mcg once daily in the morning as ordered. We will obtain serial chemistries and supplement accordingly as needed. We will follow. Bety Najera MD
[2018-07-23 05:52] LABS: ALB/GLOB RATIO 0.8 (1.0-2.1); ALBUMIN 2.7 g/dL (3.5-5.0); CALCIUM 9.7 mg/dL (8.4-10.2)
[2018-07-23 05:57] LABS: T4 11.4 ug/dl (5.5-11.0)
[2018-07-23] MEDS: Levothyroxine 75 MCG TAB PO SCH (06:24)
--- NOTE | 2018-07-23 08:04 | CP.PCM.PN ---
Subjective - Date & Time of Evaluation Date of Evaluation: 07/23/18 Time of Evaluation: 08:04 - Subjective Subjective: Comfortable lying in bed with nasal canula @ 2 LPM. SpO2 91% with O2 on at rest. Patient claims to feel improved from admission on current therapy. Leukocytosis decreases daily, no down to 13 yesterday. Vital signs have been stable and she has been afebrile. No cyanosis, no dependant edema, no calf tenderness. Neck is supple and trachea midline. No dullness on chest percussion, no subcut emphysema. Breath sounds are slightly diminished in both lungs. Dry to medium rales are heard in both lower lobes. No audible wheezing or bronchial breath sounds. Switch to oral antibiotics. Follow up chest x-ray. Check ABG for possible home O2. Begine aerosol therapy with duoneb empirically based on smoking history. Needs PFT as outpatient when recovered from pneumonia. Probably needs repeat CT chest as outpatient and possible FFB/TBLB. Objective - Vital Signs/Intake and Output Vital Signs (last 24 hours): Temp Pulse Resp BP Pulse Ox 98.0 F 76 20 123/82 94 L 07/23/18 05:11 07/23/18 05:11 07/23/18 05:11 07/23/18 05:11 07/23/18 05:11 - Medications Medications: Current Medications Enoxaparin Sodium (Lovenox) 30 mg SC DAILY [facility]; Protocol Last Admin: 07/22/18 09:41 Dose: 30 mg Azithromycin 500 mg/ Sodium (Chloride) 250 mls @ 250 mls/hr IVPB DAILY [facility]; Protocol Last Admin: 07/22/18 09:42 Dose: 250 mls/hr Ceftriaxone Sodium 1 gm/ (Sodium Chloride) 100 mls @ 100 mls/hr IVPB DAILY [facility]; Protocol Last Admin: 07/22/18 09:42 Dose: 100 mls/hr Levothyroxine Sodium (Synthroid) 75 mcg PO DAILY@0630 [facility] Last Admin: 07/23/18 06:24 Dose: 75 mcg Lisinopril (Zestril) 20 mg PO DAILY [facility] Last Admin: 07/22/18 09:43 Dose: 20 mg - Labs Labs: 07/22/18 15:31 07/23/18 04:25 Assessment and Plan (1) Atypical pneumonia Status: Acute (2) Rheumatoid arthritis Status: Chronic (3) MARLON (acute kidney injury) Status: Acute (4) Transaminitis Status: Acute
[2018-07-23 08:58] LABS: ABG ALLEN TEST YES; ARTERIAL BLOOD GAS HCO3 26.8 mmol/L (21-28); ARTERIAL BLOOD GAS HEMOGLOBIN 11.3 g/dL (11.7-17.4); ARTERIAL BLOOD GAS O2 CAPACITY 15.2 mL/dL (16-24); ARTERIAL BLOOD GAS PCO2 36 mm/Hg (35-45); ARTERIAL BLOOD GAS PH 7.47 (7.35-7.45); ARTERIAL BLOOD GAS PO2 53 mm/Hg (80-100); ARTERIAL BLOOD GAS TCO2 27.3 mmol/L (22-28)
--- NOTE | 2018-07-23 08:59 | CP.PCM.PN ---
Subjective - Date & Time of Evaluation Date of Evaluation: 07/23/18 Time of Evaluation: 07:45 - Subjective Subjective: NO CHEST PAIN BREATHING BETTER NO CHILLS LESS COUGH Objective - Vital Signs/Intake and Output Vital Signs (last 24 hours): Temp Pulse Resp BP Pulse Ox 97.4 F L 78 20 131/73 95 07/23/18 08:20 07/23/18 08:20 07/23/18 08:20 07/23/18 08:20 07/23/18 08:20 - Medications Medications: Current Medications Albuterol/Ipratropium (Duoneb 3 Mg/0.5 Mg (3 Ml) Ud) 3 ml INH RQID [facility] Azithromycin (Zithromax) 500 mg PO DAILY [facility]; Protocol Cefdinir (Omnicef) 300 mg PO BID [facility] Enoxaparin Sodium (Lovenox) 30 mg SC DAILY [facility]; Protocol Last Admin: 07/22/18 09:41 Dose: 30 mg Levothyroxine Sodium (Synthroid) 75 mcg PO DAILY@0630 [facility] Last Admin: 07/23/18 06:24 Dose: 75 mcg Lisinopril (Zestril) 20 mg PO DAILY [facility] Last Admin: 07/22/18 09:43 Dose: 20 mg - Labs Labs: 07/22/18 15:31 07/23/18 04:25 - Respiratory Exam Respiratory Exam: Rales - Cardiovascular Exam Cardiovascular Exam: REGULAR RHYTHM, +S1, +S2 - Extremities Exam Additional comments: NO SIGNIFICANT LE EDEMA - Additional Findings 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
[2018-07-23] MEDS ORDERED: Cefdinir 300 MG CAP PO SCH (09:00)
[2018-07-23] MEDS: Enoxaparin 30 mg Syringe SC SCH (10:09)
[2018-07-23 10:27] LABS: BASO # 0.2 K/uL (0.0-0.2); BASO % 1.4 % (0.0-2.0); EOS # 0.4 K/uL (0.0-0.7); EOS % 2.5 % (0.0-4.0); HEMOGLOBIN 11.9 g/dL (12.0-16.0); LYMPH # 6.5 K/uL (1.0-4.3); LYMPH % 40.7 % (20.0-40.0); MEAN CELL VOLUME 96.7 fl (81.0-99.0); MEAN CORPUSCULAR HEMOGLOBIN 30.7 pg (27.0-31.0); MEAN CORPUSCULAR HGB CONC 31.7 g/dL (33.0-37.0); MEAN PLATELET VOLUME 10.8 fl (7.2-11.7); MONO # 2.2 K/uL (0.0-0.8); MONO % 13.5 % (0.0-10.0); NEUT # 6.7 K/uL (1.8-7.0); NEUT % 41.9 % (50.0-75.0); NRBC % 0.2 % (0.0-0.0); RBC 3.88 Mil/uL (3.80-5.20); RED CELL DISTRIBUTION WIDTH 19.1 % (11.5-14.5)
[2018-07-23] MEDS: Azithromycin 500 MG in Sodium Chloride 0.9% 250 ML IVPB SCH (13:26)
[2018-07-23] MEDS: Albuterol-Ipratrop 3 mg / 0.5 (3 ml) UD INH SCH ×3 (13:33→19:48)
--- NOTE | 2018-07-23 13:53 | CP.PCM.PCO ---
Assessment/Plan - Assessment and Plan (Free Text) Assessment: Patient with Pneumonia this admission, seen by Hearing Dog Trainer Dr Brooks, Patient qualifies for home O2 based on the PaO2 of 53mmHg at rest on room air. All other therapies have been tried and failed.
--- NOTE | 2018-07-23 15:23 | PQF ---
PROVIDER RESPONSE TEXT: Patient admitted with pneumonia and shortness of breath. Has a history of COPD from her PMD. No pulmo nary function studies available to confirm diagnosis. Presentation would be consistent with exacerbat ion, and hypoxia would be a secondary effect as well. REVIEWER QUERY TEXT: COPD Specificity COPD - Chronic Obstructive Pulmonary Disease is documented in the Medical Record. Please specify if: -- Stable -- Exacerbation - acute -- Other, please specify ER MD: ROS: Respiratory: Positive for: Cough, Shortness of Breath, SOB with Exertion, Wheezing PE; Respiratory: Positive for: Rales (bilateral lower extremities), Wheezing Pulmonary consult includes: - PULMONARY Hx Chronic Obstructive Pulmonary Disease (COPD): Yes Breath sounds are mildly diminished bilaterally. Scattered dry rales in lower lobes.No audible wheezes or bronchial breath sounds (2) Rheumatoid arthritis Status: Chronic Priority: High (3) MARLON (acute kidney injury) Status: Acute Priority: High (4) Transaminitis Status: Acute Priority: High Duoneb QID, 02 The patient's Clinical Indicators include: -- Query created by: Mariah Eng on 07/23/2018 12:13 PM Electronically signed by: Sd Brooks MD 07/23/2018 3:21 PM
--- NOTE | 2018-07-23 15:28 | PQF ---
PROVIDER RESPONSE TEXT: YES, COPD as well as Interstitial lung disease secondary to rheumatoid arthritis. REVIEWER QUERY TEXT: Clarification of Clinical Diagnostic Findings Please clarify if there is an associated diagnosis to go along with the documentation: qualifies for home O2 based on the PaO2 of 53mmHg at rest on room air. OR: Disagree V/S record: Respirations: 20->18->26->17->22->25->24 ER MD: CC:Provider: Shortness of Breath ROS: Respiratory: Positive for: Cough, Shortness of Breath, SOB with Exertion, Wheezing PE: Respiratory: Positive for: Rales (bilateral lower extremities), Wheezing 1/5 Pulm consult: Had an episode of feverish sensation associated with shaking chills 2-3 days prior. Leukocytosis of 16 noted on presentation with elevated LFTs and BUN/Creatinine. PULMONARY Hx Chronic Obstructive Pulmonary Disease (COPD): Yes Assessment :(1) Atypical pneumonia Status: Acute (2) Rheumatoid arthritis Status: Chronic (3) MARLON (acute kidney injury) Status: Acute (4) Transaminitis Status: Acute continue antibiotic coverage for atypical CAP O2 Nasal Cannula, Nebs QID The patient's Clinical Indicators include: -- Query created by: Mariah Eng on 07/23/2018 1:50 PM Electronically signed by: Sd Brooks MD 07/23/2018 3:25 PM
--- NOTE | 2018-07-23 17:58 | PN ---
DATE: 07/23/2018 ENDO FOLLOWUP NOTE ROOM: 417. SUBJECTIVE: This is a 73-year-old female admitted with acute onset of shortness of breath and evaluated to be in congestive heart failure with concomitant pneumonitis and is being followed closely for metabolic management. She remains clinically euthyroid at this time but biochemically has evidence of a suppressed TSH and elevated thyroxine values as noted. Her latest thyroid study showed a T4 of 11.4 mcg/dL with a free T4 of 2.06 and a TSH of 0.9. Her chemistry showed a BUN of 22, sodium 141, potassium 3.7, chloride 106, CO2 29, glucose 85 and creatinine 1.3. ASSESSMENT: This is a 73-year-old female who is presenting here with congestive heart failure and supervening pneumonitis and is now receiving IV antibiotic management and close cardiac and pulmonary followup and management. She remains clinically euthyroid but biochemically has evidence of the so-called acute sick euthyroid syndrome with a slightly suppressed TSH and elevated thyroxine values indicative of early hyperthyroxinemia as noted thereof. PLAN OF MANAGEMENT: We will lower and modify the levothyroxine to a dosing of 75 mcg once daily in the morning as ordered to start today. We will obtain serial thyroid studies and adjust her dose regimen accordingly. We will see we will also obtain serial chemistries and supplement accordingly needed. We will follow. Bety Najera MD
--- NOTE | 2018-07-23 20:50 | CP.PCM.PN ---
Subjective - Date & Time of Evaluation Date of Evaluation: 07/23/18 Time of Evaluation: 22:22 - Subjective Subjective: above noted Objective - Vital Signs/Intake and Output Vital Signs (last 24 hours): Temp Pulse Resp BP Pulse Ox 98 F 101 H 20 102/67 96 07/23/18 20:10 07/23/18 20:10 07/23/18 20:10 07/23/18 20:10 07/23/18 20:10 - Medications Medications: Current Medications Albuterol/Ipratropium (Duoneb 3 Mg/0.5 Mg (3 Ml) Ud) 3 ml INH RQID [facility] Last Admin: 07/23/18 19:48 Dose: 3 ml Enoxaparin Sodium (Lovenox) 30 mg SC DAILY [facility]; Protocol Last Admin: 07/23/18 10:09 Dose: 30 mg Ceftriaxone Sodium 1 gm/ (Sodium Chloride) 100 mls @ 100 mls/hr IVPB DAILY [facility]; Protocol Last Admin: 07/23/18 13:27 Dose: 100 mls/hr Azithromycin 500 mg/ Sodium (Chloride) 250 mls @ 250 mls/hr IVPB DAILY [facility]; Protocol Last Admin: 07/23/18 13:26 Dose: Not Given Levothyroxine Sodium (Synthroid) 75 mcg PO DAILY@0630 [facility] Last Admin: 07/23/18 06:24 Dose: 75 mcg Lisinopril (Zestril) 20 mg PO DAILY [facility] Last Admin: 07/23/18 10:09 Dose: 20 mg - Labs Labs: 07/23/18 10:22 07/23/18 04:25 - Respiratory Exam Respiratory Exam: NORMAL BREATHING PATTERN - Cardiovascular Exam Cardiovascular Exam: REGULAR RHYTHM - GI/Abdominal Exam GI & Abdominal Exam: Normal Bowel Sounds Assessment and Plan - Assessment and Plan (Free Text) Assessment: COPD CAP Atypical Pneumonia CT scan diffuse interstitial dx Pulmonary Cardiology Echo 55-60 MARLON Dehydration Rheumatoid arthritis Obesity HTN ITP thrombocytopenia TFT ?? Hypercalcemia Labs Endo Meds adjusted
[2018-07-24 00:30] VITALS: RESP 18
[2018-07-24] MEDS: Levothyroxine 75 MCG TAB PO SCH (06:16)
[2018-07-24 07:53] VITALS: O2SAT 96
[2018-07-24] MEDS: Albuterol-Ipratrop 3 mg / 0.5 (3 ml) UD INH SCH ×3 (08:07→15:48)
[2018-07-24] MEDS: Enoxaparin 30 mg Syringe SC SCH (08:36)
[2018-07-24] MEDS: Azithromycin 500 MG in Sodium Chloride 0.9% 250 ML IVPB SCH (08:43)
[2018-07-24] MEDS ORDERED: Ergocalciferol 50,000 Intl Units Cap PO SCH (10:00)
--- NOTE | 2018-07-24 10:09 | CP.PCM.PN ---
Subjective - Date & Time of Evaluation Date of Evaluation: 07/24/18 Time of Evaluation: 10:00 - Subjective Subjective: Interim events reviewed. Repeat chest x-ray done. Vital signs have remained stable. SpO2 91% at rest on nasal canula at 2 LPM. Influenza A testing positive. Started on oseltamivir. Patient claims she is feeling improved and is anxious for discharge to home. On exam there are occasional dry to medium rales in the lower lobes of both iliana ngs. No audible wheezes or bronchial breath sounds. Can be discharged home on Tamiflu 30MG BID x 5 days. Would continue azithromycin 250MG daily for 5 days also. Has home oxygen arranged; 2LPM nasal canula. CBC from this morning pending (would want to see that WBC is decreasing). Will need follow up CT chest (no contrast) in about 4 weeks time to evaluate for ILD. Needs complete pulmonary function testing as outpatient as well. If interstitial disease is still evident on CT, then bronchoscopy with TBLB would be indicated. Final diagnosis: Influenza A with atypical pneumonia. Acute exacerbation of COPD. Hypoxemia secondary to both of the above. Rheumatoid arthritis with possible ILD (needs clarification). Objective - Vital Signs/Intake and Output Vital Signs (last 24 hours): Temp Pulse Resp BP Pulse Ox 97.8 F 81 18 108/73 96 07/24/18 07:52 07/24/18 08:36 07/24/18 07:52 07/24/18 08:36 07/24/18 07:52 - Medications Medications: Current Medications Albuterol/Ipratropium (Duoneb 3 Mg/0.5 Mg (3 Ml) Ud) 3 ml INH RQID MSAOUD Last Admin: 07/24/18 08:07 Dose: 3 ml Enoxaparin Sodium (Lovenox) 30 mg SC DAILY MASOUD; Protocol Last Admin: 07/24/18 08:36 Dose: 30 mg Ergocalciferol (Drisdol 50,000 Intl Units Cap) 1 cap PO Q7D [facility] Ceftriaxone Sodium 1 gm/ (Sodium Chloride) 100 mls @ 100 mls/hr IVPB DAILY [facility]OUD; Protocol Last Admin: 07/24/18 08:45 Dose: 100 mls/hr Azithromycin 500 mg/ Sodium (Chloride) 250 mls @ 250 mls/hr IVPB DAILY [facility]OUD; Protocol Last Admin: 07/24/18 08:43 Dose: 250 mls/hr Levothyroxine Sodium (Synthroid) 75 mcg PO DAILY@0630 [facility] Last Admin: 07/24/18 06:16 Dose: 75 mcg Lisinopril (Zestril) 20 mg PO DAILY [facility] Last Admin: 07/24/18 08:36 Dose: 20 mg Oseltamivir Phosphate (Tamiflu Cap) 30 mg PO BID [facility]; Protocol - Labs Labs: 07/23/18 10:22 07/23/18 04:25 Assessment and Plan (1) Atypical pneumonia Status: Acute (2) Rheumatoid arthritis Status: Chronic (3) MARLON (acute kidney injury) Status: Acute (4) Transaminitis Status: Acute
[2018-07-24 10:33] LABS: HEMOGLOBIN 10.4 g/dL (12.0-16.0); MEAN CELL VOLUME 96.8 fl (81.0-99.0); MEAN CORPUSCULAR HEMOGLOBIN 30.8 pg (27.0-31.0); MEAN CORPUSCULAR HGB CONC 31.8 g/dL (33.0-37.0); RBC 3.39 Mil/uL (3.80-5.20); RED CELL DISTRIBUTION WIDTH 18.9 % (11.5-14.5)
--- NOTE | 2018-07-24 11:40 | CP.PCM.PCO ---
Assessment & Plan - Assessment and Plan (Free Text) Assessment: pt. feels well this morning; seen and examined patient w/ pt. cleared for d/c home today by cont. home O2 Rx for all meds provided f/u with on Monday pneumonia has improved, oxygen being ordered to treat copd
--- NOTE | 2018-07-24 11:46 | CP.PCM.PN ---
Subjective - Date & Time of Evaluation Date of Evaluation: 07/24/18 Time of Evaluation: 09:00 - Subjective Subjective: BREATHING AND FEELING BETTER Objective - Vital Signs/Intake and Output Vital Signs (last 24 hours): Temp Pulse Resp BP Pulse Ox 97.8 F 81 18 108/73 96 07/24/18 07:52 07/24/18 08:36 07/24/18 07:52 07/24/18 08:36 07/24/18 07:52 - Medications Medications: Current Medications Albuterol/Ipratropium (Duoneb 3 Mg/0.5 Mg (3 Ml) Ud) 3 ml INH RQID [facility] Last Admin: 07/24/18 11:13 Dose: 3 ml Enoxaparin Sodium (Lovenox) 30 mg SC DAILY [facility]; Protocol Last Admin: 07/24/18 08:36 Dose: 30 mg Ergocalciferol (Drisdol 50,000 Intl Units Cap) 1 cap PO Q7D [facility] Last Admin: 07/24/18 11:16 Dose: 1 cap Ceftriaxone Sodium 1 gm/ (Sodium Chloride) 100 mls @ 100 mls/hr IVPB DAILY [facility]; Protocol Last Admin: 07/24/18 08:45 Dose: 100 mls/hr Azithromycin 500 mg/ Sodium (Chloride) 250 mls @ 250 mls/hr IVPB DAILY [facility]; Protocol Last Admin: 07/24/18 08:43 Dose: 250 mls/hr Levothyroxine Sodium (Synthroid) 75 mcg PO DAILY@0630 [facility] Last Admin: 07/24/18 06:16 Dose: 75 mcg Lisinopril (Zestril) 20 mg PO DAILY [facility] Last Admin: 07/24/18 08:36 Dose: 20 mg Oseltamivir Phosphate (Tamiflu Cap) 30 mg PO BID [facility]; Protocol Last Admin: 07/24/18 11:15 Dose: 30 mg - Labs Labs: 07/24/18 10:00 07/24/18 10:00 - Respiratory Exam Respiratory Exam: Rales - Cardiovascular Exam Cardiovascular Exam: REGULAR RHYTHM, +S1, +S2 - Additional Findings Additional findings: [employer] NSR PULMONARY NOTE SEEN WITH INFLUENZA A Assessment and Plan - Assessment and Plan (Free Text) Assessment: INFLUENZA A WITH PNEUMONIA RA HYPERTENSION Plan: TAMIFLU STARTED CONTINUE ANTIBIOTICS, LISINOPRIL LOVENOX AND ALBUTEROL PATIENT CAN BE DISCHARGED FROM [facility]
[2018-07-24 12:11] VITALS: BP 121/78; PULSE 94; TEMP 97.9
--- NOTE | 2018-07-24 15:47 | RAD ---
Date of service: 07/24/2018 HISTORY: Follow-up pneumonia. COMPARISON: Comparison chest dated 07/20/[address] scan chest dated 07/21/2018. TECHNIQUE: Chest PA and lateral FINDINGS: LUNGS: Diffuse bilateral interstitial infiltrates and ground-glass opacities; rule out interstitial pneumonia versus chronic interstitial fibrosis or possibly mild chronic compensated pulmonary edema/CHF. PLEURA: No significant pleural effusion identified. No pneumothorax apparent. CARDIOVASCULAR: No aortic atherosclerotic calcification present. Normal cardiac size. No pulmonary vascular congestion. OSSEOUS STRUCTURES: Multilevel chronic anterior wedge compression deformities with multilevel degenerative spondylosis. VISUALIZED UPPER ABDOMEN: Normal. OTHER FINDINGS: None. IMPRESSION: Diffuse bilateral interstitial infiltrates and ground-glass opacities; rule out interstitial pneumonia versus chronic interstitial fibrosis or possibly mild chronic compensated pulmonary edema/CHF.
--- NOTE | 2018-07-24 18:29 | PN ---
DATE: 07/24/2018 ENDO FOLLOWUP NOTE LOCATION: Room 414. SUBJECTIVE: This is a 73-year-old female presenting here with progressive shortness of breath and evaluated to have congestive heart failure with concomitant underlying pneumonitis and is undergoing closer hemodynamic monitoring and IV antibiotic management as given. She is also being followed closely for evaluation of abnormal thyroid function studies. She remains clinically euthyroid at this time. Her repeat thyroid studies showed a T4 of 11.4 with a TSH of 0.9 and a free T4 of 2.06. So at this time, we will continue the same modified and lower dosing of the levothyroxine given as 75 mcg once daily in the morning as ordered. We will obtain serial thyroid studies and titrate her dose regimen accordingly. We will follow. Bety Najera MD
--- NOTE | 2018-07-24 20:58 | CP.PCM.PN ---
Subjective - Date & Time of Evaluation Date of Evaluation: 07/24/18 Time of Evaluation: 22:22 - Subjective Subjective: Above noted Objective - Vital Signs/Intake and Output Vital Signs (last 24 hours): Temp Pulse Resp BP Pulse Ox 97.9 F 94 H 18 121/78 96 07/24/18 12:00 07/24/18 12:00 07/24/18 12:00 07/24/18 12:00 07/24/18 12:00 - Labs Labs: 07/24/18 10:00 07/24/18 10:00 Assessment and Plan - Assessment and Plan (Free Text) Assessment: COPD CAP Atypical Pneumonia Influenza CV Dx?? CT scan diffuse interstitial dx As per Pulmonary Cardiology Echo 55-60 Ej fx Abnormal relaxation phase MARLON Dehydration Rheumatoid arthritis Obesity HTN ITP thrombocytopenia TFT abnormal meds adjusted Hypercalcemia repeat okay?? Endo
== END 2018-07-24 18:37 | disposition home or self-care (01) | DRG 190 ==
LOC: H.ER 16:36 → H.ERHOLD 20:30 → H.TEL 07-21 19:33
PROVIDERS: ADMIT Family Medicine Geriatric Medicine; ATTEND Family Medicine Geriatric Medicine
PROC: 3E0F73Z Introduction of Anti-inflammatory into Respiratory Tract, Via Natural or Artificial Opening (ICD-10-PCS; principal; 2018-07-20)
PROC: 3E0F7GC Introduction of Other Therapeutic Substance into Respiratory Tract, Via Natural or Artificial Opening (ICD-10-PCS; 2018-07-20)
DX: J44.0 Chronic obstructive pulmonary disease with (acute) lower respiratory infection (principal); J18.9 Pneumonia, unspecified organism; N17.9 Acute kidney failure, unspecified; D69.3 Immune thrombocytopenic purpura; Z68.41 Body mass index [BMI] 40.0-44.9, adult; J10.08 Influenza due to other identified influenza virus with other specified pneumonia; J44.1 Chronic obstructive pulmonary disease with (acute) exacerbation; J84.89 Other specified interstitial pulmonary diseases; R09.02 Hypoxemia; E06.3 Autoimmune thyroiditis; M06.9 Rheumatoid arthritis, unspecified; E86.0 Dehydration; I10 Essential (primary) hypertension; E66.9 Obesity, unspecified; E83.52 Hypercalcemia; E78.5 Hyperlipidemia, unspecified; R74.0 Nonspecific elevation of levels of transaminase and lactic acid dehydrogenase [LDH]; Z87.891 Personal history of nicotine dependence; Z99.81 Dependence on supplemental oxygen